=== PATIENT | female | born 1945 | race Caucasian/White ===

== ENCOUNTER 2024-11-14 05:48 | Emergency (ER) | payer MEDICARE, SELFPAY ==
--- NOTE | 2024-11-14 | ECG_ITS ---
Test Reason : HYPERTENSION Blood Pressure : */* mmHG Vent. Rate : 68 BPM Atrial Rate : 68 BPM P-R Int : 160 ms QRS Dur : 86 ms QT Int : 412 ms P-R-T Axes : 54 -21 9 degrees QTcB Int : 438 ms Sinus rhythm with Premature atrial complexes with Aberrant conduction Otherwise normal ECG No previous ECGs available Referred By: Generic ED Physician Electronically Signed By: HELADIO ALBERTO MD
[2024-11-14 05:59] VITALS: BP 172/76; PULSE 65; RESP 16; TEMP 36.3; O2SAT 97; BMI 28.2
[2024-11-14 06:48] LABS: MANUAL DIFF FLAG NO
[2024-11-14 06:49] LABS: Basophils Percent Auto 0.3 % (0-2); Eosinophils Absolute Auto 0.1 X10*3/uL (0.0-0.4); Eosinophils Percent Auto 1.1 % (0-4); Hematocrit 41.3 % (37.0-47.0); Hemoglobin 13.9 g/dl (12.0-16.0); Imm Gran Abs Auto 0.02 X10*3/uL (0.00-0.03); Imm Gran Pct Auto 0.3 % (0.0-0.4); Lymphocytes Absolute Auto 1.8 X10*3/uL (1.2-4.9); Lymphocytes Percent Auto 25.9 % (20-40); Mean Corpuscular HGB Conc 33.7 g/dl (31.0-35.0); Mean Corpuscular Volume 94.9 fL (80.0-98.0); Mean Platelet Volume 11.3 fL (9.4-12.3); Monocytes Absolute Auto 0.6 X10*3/uL (0.1-1.2); Monocytes Percent Auto 8.2 % (2-11); Neutrophils Absolute Auto 4.6 x10*3/uL (2.0-8.3); Neutrophils Percent Auto 64.2 % (45-73); Platelet Count 176 X10*3/uL (160-400); Red Blood Count 4.35 X10*6/uL (4.20-5.50); Red Cell Distribution Width 12.1 % (11.0-16.0); White Blood Count 7.1 X10*3/uL (4.8-10.8)
[2024-11-14 07:10] LABS: Alanine Aminotransferase 14 U/L (0-31); Albumin Level 3.9 g/dL (3.5-5.0); Alkaline Phosphatase 71 U/L (39-117); Anion Gap 11 (12-20); Aspartate Amino Transferase 20 U/L (5-31); Bilirubin Total 0.4 mg/dL (0.0-1.0); Blood Urea Nitrogen 16 mg/dL (9-16); Calcium 8.9 mg/dL (8.4-10.2); Carbon Dioxide 25 mmol/L (22-29); Chloride 108 mmol/L (96-108); Creatinine Clr Calc Pharmacy 65.3; Estimated Glomerular Filt Rate > 60; Glucose Random 100 mg/dL (60-115); Potassium 4.2 mmol/L (3.3-5.1); Sodium 140 mmol/L (135-145)
[2024-11-14 07:16] LABS: Troponin-I High Sensitivity 4.5 ng/L (<3.5-17.0)
[2024-11-14 07:20] LABS: Appearance Urine Clear; Color Urine Yellow; Glucose Urine UA Negative (Negative); Leukocyte Esterase Urine Trace (Negative); Nitrite Urine Negative (Negative); PH 7.5 (5.0-9.0); Specific Gravity - Urine 1.015 (1.005-1.025); UMIC TRIGGER UACC YES; Urine Blood Negative (Negative); Urine Ketones Negative (Negative); Urine Protein Negative (Neg-Trace)
[2024-11-14 07:22] LABS: Bacteria Urine None Seen (None Seen); Hyaline Casts Urine 0-2 /LPF (0-2); RBC Urine 0-2 /HPF (0-2); Squamous Epithelial Cell Urine 0-2 /HPF (0-2); WBC Urine 0-5 /HPF (0-5)
[2024-11-14 07:48] VITALS: BP 186/74; PULSE 66; RESP 16; TEMP 36.4; O2SAT 93
--- NOTE | 2024-11-14 07:49 | ED.GENADULT ---
HPI - General Adult General Chief complaint: General Medical Stated complaint: HBP- tiredness Time Seen by Provider: 11/14/24 08:42 Source: patient and medical or surgical instrument maker Mode of arrival: ambulatory Limitations: language barrier History of Present Illness ED Provider: Angela Neil PA-C [facility] narrative: This is a 79-year-old female, who presents emergency department with concerns for vaginal itching worsening over the last month. Patient states that she is unable to sleep as she is constantly waking up in the middle of the night with itching. She states that she has a history of this several years ago most prescribed a cream which helped her significantly. She is unsure of the name. She denies any headaches, dizziness, blurred vision, chest pain, shortness for breath, abdominal pain, nausea, vomiting or diarrhea. She denies any dysuria, hematuria, urinary frequency or urgency. She has tried heat and ice packs as well as showering in the middle of the night to help with her symptoms however this is not provided her with any relief. No other complaints or concerns at this time. MD complaint: Vaginal itching Onset (ago): month(s) Radiation: non-radiation Pain Consistency: constant Relieving factors: none Associated symptoms: denies other symptoms Treatments prior to arrival: none Related Data Previous Rx's ?Medication ?Instructions ?Recorded clotrimazole 1 % topical cream 1 appl topical BID 7 days #15 grams 11/14/24 Allergies Allergy/AdvReac Type Severity Reaction Status Date / Time No Known Allergies Allergy Verified 11/14/24 06:03 Review of Systems Review of Systems: Yes all other systems are reviewed and are negative Constitutional: Constitutional: Reports as per [facility] Social History Social History Advance Directives: No Advance Directives Information Provided: Yes Do you have a plan to hurt others: No Plan Physical Exam ED Vital Signs: Vital Signs - 24 hr 11/14/24 05:59 11/14/24 07:48 Temperature 97.3 F 97.5 F Pulse Rate 65 66 Respiratory Rate 16 16 Blood Pressure 172/76 H 186/74 H Pulse Oximetry 97 93 Oxygen Delivery Method Room Air Room Air BMI result Body Mass Index 28.2 Const General: cooperative, comfortable and no acute distress Orientation/consciousness: patient oriented x3 Limitations: no limitations HENMT Head: Yes normal to inspection, Yes normocephalic and Yes atraumatic Ears: hearing grossly normal bilaterally General nose exam: Normal external nose present Face and sinus: Yes normal facial exam Mouth: Normal oral and palatal mucosa present, oropharynx normal and moist mucous membranes Throat: Yes posterior oropharynx normal Eyes General: appearance normal, both eyes and all related structures Eyelids: Yes eyelids normal Conjunctivae: conjunctivae normal Sclerae: sclerae normal Pupils: Equal, round and reactive pupils present EOM: EOMs intact bilaterally Neck Neck: Yes normal visual inspection, Yes full ROM and Yes no lymphadenopathy Lymphatic: no lymphadenopathy noted Chest Chest palpation & inspection: normal inspection of the chest Resp Effort & Inspection: normal respiratory effort and able to speak in complete sentences Auscultation: clear to auscultation bilaterally, no crackles, no rales, no rhonchi and no wheezes Cardio Rate: regular rate Rhythm: regular rhythm Heart sounds: S1 normal heart sound present and S2 normal heart sound present GI Inspection: Yes normal to inspection Other: examination performed with RN present at all times, Porsche Ely RN. In the groin folds, as well as the labia majora, there is slight erythema and edema noted, no obvious discharge noted. No drainage, does not extend into the perineum region. Skin General skin exam: no rashes or lesions noted Trauma: no lacerations or abrasions Wounds: no wounds Neuro General: patient oriented x3 and moves all extremities Cranial nerves: Yes Equal, round and reactive pupils present Extrem General: Yes normal to inspection Right upper extremity: normal to inspection Left upper extremity: normal to inspection Right lower extremity: normal to inspection Left lower extremity: normal to inspection Course Course Course Narrative: 79 yo female with no PMH here with c/o not sleeping well, fatigued and having vaginal itching that keeps her up at night. They state she is not on any medications. She is very tired. Her blood pressure is elevated which is abnormal for her. No CP/SOB reported. Labs and patient wants female provider this is a RAPID medical screening exam the rest of the history and physical exam is to be done by the main provider. TRACY 11/14/24 755am Medical Decision Making Medical Decision Making MDM Narrative: This is a 79-year-old female who presents emergency department with concerns for vaginal itching for the last month which is keeping her up at night. On arrival, blood pressure elevated at 172/76, she was not evaluated until approximately 9:00 a.m. due to prolonged wait times in the emergency room. Blood pressure 186/74. She reports that she did not take her blood pressure medication prior to her arrival today. She has no chest pain or shortness of breath. No dizziness or blurred vision. Patient reports that she was previously prescribed a cream which helped her tremendously. I called over to her pharmacy, they have no record. Will try topical clotrimazole. Advised follow-up with PCP. She understands and agrees with plan. Given strict return precautions. Labs were obtained prior to my evaluation, she has no leukocytosis, stable H&H, she has no chest pain or shortness for breath. EKG was performed, no STEMI, trace leuk esterases seen on urinalysis. No other complaints or concerns at this time. Differential Diagnosis Differential Diagnoses: The differential diagnosis associated with the presentation includes Atrophic vaginitis, vulva candidiasis, contact dermatitis, UTI Lab Data [facility] Lab Attestation statement: I reviewed the patient's lab results. See MDM and course 11/14/24 06:42 11/14/24 06:42 Labs: Lab Results 11/14/24 Range/Units 06:42 WBC 7.1 (4.8-10.8) X10*3/uL RBC 4.35 (4.20-5.50) X10*6/uL Hgb 13.9 (12.0-16.0) g/dl Hct 41.3 (37.0-47.0) % MCV 94.9 (80.0-98.0) fL MCH 32.0 (27.0-33.0) pg MCHC 33.7 (31.0-35.0) g/dl RDW 12.1 (11.0-16.0) % Plt Count 176 (160-400) X10*3/uL MPV 11.3 (9.4-12.3) fL Immature Gran % (Auto) 0.3 (0.0-0.4) % Neut % (Auto) 64.2 (45-73) % Lymph % (Auto) 25.9 (20-40) % [place] % (Auto) 8.2 (2-11) % Eos % (Auto) 1.1 (0-4) % Baso % (Auto) 0.3 (0-2) % Lymph # (Auto) 1.8 (1.2-4.9) X10*3/uL [place] # (Auto) 0.6 (0.1-1.2) X10*3/uL Eos # (Auto) 0.1 (0.0-0.4) X10*3/uL Baso # (Auto) 0.0 (0.0-0.2) X10*3/uL Abs Immat Gran (auto) 0.02 (0.00-0.03) X10*3/uL Absolute Neuts (auto) 4.6 (2.0-8.3) x10*3/uL Absolute Nucleated RBC 0.000 (0.0-0.012) X10*3/uL Nucleated RBC % (auto) 0.0 (0.0-0.2) /100WBC Sodium 140 (135-145) mmol/L Potassium 4.2 (3.3-5.1) mmol/L Chloride 108 (96-108) mmol/L Carbon Dioxide 25 (22-29) mmol/L Anion Gap 11 L (12-20) BUN 16 (9-16) mg/dL Creatinine 0.65 (0.5-1.4) mg/dL Estim Creat Clear Calc 65.3 Estimated GFR > 60 Random Glucose 100 (60-115) mg/dL Calcium 8.9 (8.4-10.2) mg/dL Total Bilirubin 0.4 (0.0-1.0) mg/dL AST 20 (5-31) U/L ALT 14 (0-31) U/L Alkaline Phosphatase 71 (39-117) U/L Troponin I High Sens 4.5 (<3.5-17.0) ng/L Total Protein 7.0 (6.5-8.0) g/dL Albumin 3.9 (3.5-5.0) g/dL Urine Color Yellow Urine Appearance Clear Urine pH 7.5 (5.0-9.0) Ur Specific [place] 1.015 (1.005-1.025) Urine Protein Negative (Neg-Trace) mg/dL Urine Glucose (UA) Negative (Negative) mg/dL Urine Ketones Negative (Negative) mg/dL Urine Blood Negative (Negative) Urine Nitrite Negative (Negative) Ur Leukocyte Esterase Trace H (Negative) Urine RBC 0-2 (0-2) /HPF Urine WBC 0-5 (0-5) /HPF Ur Squamous Epith Cells 0-2 (0-2) /HPF Urine Bacteria None Seen (None Seen) Hyaline Casts 0-2 (0-2) /LPF Independent Interpretation I performed an independent interpretation of an: EKG Interpretation: Rate: 68 Rhythm: NSR with PACs [place]: left Normal P waves. Normal SOFIA. Normal QRS complex. ST T wave : normal no LUCITA qTC: 438 prior studies: no acute ischemia The study has been interpreted contemporaneously by me. . Discharge Plan Discharge Clinical Impression: Vagina itching Patient Disposition: Home, Self-Care Instructions: Yeast Infection (ED), Skin Yeast Infection (ED) Additional Instructions: You were seen in the emergency department today. You have concerns for a rash in your pelvic region which can be attributed to a fungal like infection. Please apply clotrimazole cream twice a day for the next 7 days. Keep area clean and dry. Please follow-up with your primary care physician to ensure that your symptoms are improving. If any new or worsening symptoms occur including but not limited to increased redness, fevers, chills, chest pain, shortness of breath, abdominal pain, please seek emergent care. Prescriptions: New clotrimazole 1 % cream 1 appl topical BID 7 Days Qty: 15 0RF Print Language: Malian
--- NOTE | 2024-11-14 09:40 | PC.NURSE ---
internal exam performed by provider, pt to discharge home with medications
[2024-11-14 09:41] VITALS: BP 171/72; PULSE 68; RESP 16; TEMP 36.7; O2SAT 96
--- OUTSIDE RECORDS SUMMARY | 2024-11-14 09:43 | XMS_ITS | Clinical Summary ---
Author Organization [address] [facility] Address [address] [place] [address] Phone Care Team Providers Care Human Capital Manager Name Role Phone Olena Garland MD Primary Care Prov ider Allergies No known active allergies Medications alendronate (FOSAMAX) 70 mg tablet Take 1 Tablet by mouth every 7 days. 3 Active amLODIPine (NORVASC) 10 mg tablet Take 1 Tablet by mouth daily. 3 Active polyvinyl alcohol (ARTIFICIAL TEARS) 1.4 % ophthalmic solution PLACE 1 DROP IN BOTH EYES NEEDED 2 Active calcium carbonate 1,500 mg (600 mg elemental calcium) tablet TAKE 1 TABLET BY MOUTH EVERY 12 HOURS 4 Active citalopram (CeleXA) 10 mg tablet TAKE 1 TABLET BY MOUTH EVERY MORNING 4 Active dorzolamide-ti moloL (COSOPT) 22.3-6.8 mg/mL ophthalmic solution INSTILL 1 DROP IN BOTH EYES TWICE DAILY 2 Active latanoprost (XALATAN) 0.005 % ophthalmic solution INSTILL 1 DROP IN BOTH EYES AT BEDTIME 1 Active valsartan (DIOVAN) 80 mg tablet Take 1 Tablet by mouth every evening. 3 Active atenoloL (TENORMIN) 50 mg tablet TAKE 1 TABLET BY MOUTH DAILY 90 tablet 5 Active omeprazole (PriLOSEC) [address] capsule TAKE 1 CAPSULE BY MOUTH TWICE DAILY FOR 14 DAYS 28 capsule 5 Active cholecalcifero l (VITAMIN D-3) 50 mcg (2,000 unit) tablet TAKE 1 TABLET BY MOUTH DAILY 90 tablet 1 5 Active cholecalcifero l (VITAMIN D-3) 50 mcg (2,000 unit) tablet Take 1 Tablet by mouth daily. 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 Overview (04/09/2024): [facility] 09/17/12 Cholelithiasis 09/04/2012 Breast lump in female 05/15/2012 Displacement of lumbar inter vertebral disc without myelopathy 09/29/2009 Thoracic and lumbosacral neuritis 09/29/2009 Overview (04/09/2024): Thoracic or lumbosacral neuritis or radiculitis, unspecified : IMO update Essential hypertension, benign 01/24/2006 Immunizations Name Administration Dates Next Due Influenza Quadravalent, 0.5m l (Fluzone High-dose) 65yo and older 04/05/2024 Influenza Quadravalent, MDCK , 0.5ml, with preservative (Flucelvax) 6mo and older 03/27/2020 Influenza trivalent, 0.5mL ( Fluad) 65yo and older 04/06/2023,03/17/2022,03/19/2021,04/10,03/04/2017 Influenza trivalent, 0.5mL, preservative free (Fluarix; FluLaval; Fluzone) ages 6mo and older (Afluria) 3 years and older 04/17/2013,06/30/2012 CarFin SARS-CoV-2 COVID-19, mRNA, LNP-S, preservative free 06/04/2021 Pneumococcal conjugate 13 va lent (Prevnar 13, PCV13) 2mo and older 10/25/2017 Pneumococcal polysaccharide 23 valent (Pneumovax 23) 2yo and older 11/26/2011 Td Tetanus diptheria (Tdvax) 7yo and older 08/21/2018 Tdap Tetanus diptheria acell ular pertussis (Boostrix; Adacel) 7yo and older 05/28/2008 Surgical History Surgery Date Site/Laterality Comments VARICOSE VEIN SURGERY 2002 PROCEDURE: UT LIGJ DIVJ &/EXCJ VARICOSE VEIN CLUSTER 1 LEG APPENDECTOMY 26 yrs PROCEDURE: HISTORICAL APPENDECTOMY COLONOSCOPY 09/12/08 PROCEDURE: HISTORICAL COLONOSCOPY; COMMENT: hemorrhoids; repeat in ten years OTHER SURGICAL HISTORY 09/24/2010 PROCEDURE: HISTORY OTHER; COMMENT: 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 Chang Bob OTHER SURGICAL HISTORY 09/24/2010 PROCEDURE: HISTORICAL SUBTOTAL THYROIDECTOMY; COMMENT: removal of left lobe of thyroid for goiter OTHER SURGICAL HISTORY 09/04/14 PROCEDURE: UT ERCP REMOVE CALCULI/DEBRIS BILIARY/PANCREAS DUCT; COMMENT: biliary sphincterotomy, removal of CBD stones and sludge, no pancreaticogram UPPER GASTROINTESTINAL ENDOSCOPY 12/05/2019 PROCEDURE: UT UPPER GI ENDOSCOPY PERFORMED; COMMENT: dr. mireles - flash removed BREAST BIOPSY 2010ish Right PROCEDURE: BX BREAST; PERC NEEDLE CORE W/IMAG GUID; COMMENT: b9 Medical History Medical History Date Comments Unspecified essential hypertension DX:Unspecified essential hypertension Enlarged thyroid 06/24/2008 DX:Enlarged thy roid; COMMENT: asymmetric goiter, needle biopsy benign, referred to ENT Dr. 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 Madrigal, Dr. Dang Anxiety 10/25/2017 DX:Anxiety Adjustment disorder with mix ed anxiety and depressed mood 10/25/2017 DX:Adjustment disorder with mixed anxiety and depressed mood Osteoporosis 03/10/2021 DX:Osteoporosis Family History Medical History Relation Name Comments Hypertension Father Coronary artery disease Neg Hx Relation Name Status Comments Brother Alive x1 Daughter Alive x1 Father Alive Mother Alive (82) glaucoma, HTN Sister Alive x4 Son Alive x2 Social History Tobacco Use Types Packs/Day Years Used Date Smoking Tobacco: Never Smokeless Tobacco: Never Tobacco Cessation:Counseling Given: Not Answered Alcohol Use Standard Drinks/Week Comments Yes 0 (1 standard drink = 0.6 oz pur e alcohol) Comments Unknown Sex and Gender Information Value Date Recorded Sex Assigned at Not on file Legal Sex Female 9:31 AM EST Gender Identity Not on file Sexual Orientation Not on file Obstetrics History Last Filed Vital Signs Vital Sign Reading Time Taken Comments Blood Pressure 115/80 06/12/2024 10:58 AM EST Pulse 78 06/12/2024 10:58 AM EST Temperature 36.6 ??C (97.8 ??F) 05/04/2024 10:[address] Respiratory Rate 16 05/04/2024 10:11 AM EST Oxygen Saturation 98% 06/12/2024 10:58 AM EST Inhaled Oxygen Concentration - - Weight 68 kg (150 lb) 06/12/2024 10:58 AM EST Height 160 cm (5' 3 ) 06/12/2024 10:58 AM EST Body Mass Index 26.57 06/12/2024 10:58 AM EST Plan of Treatment Upcoming Encounters Date Type Department Care Team (Late st Contact Info) Description 01/25/2025 1:15 PM EDT Office Visit Adult Medicine [address] [phone] Olena Garland MD [address] [place] [id number] Health Maintenance Due Date Last Done Comments Zoster Vaccines (1 of 2) 01/10/1996 RSV Immunization Adult Patients (1 - 1-dose 75+ series) 2021 Social Influencers of Health Screening 05/29/2022 COVID-19 Vaccine ( season) 2024 06/04/2021, 10/12/2020, 09/19/2020 Depression Screening 04/28/2024 04/28/2023 Falls Risk Assessment 04/28/2024 04/28/2023 Medicare Annual Wellness Visit 04/28/2024 04/28/2023 Hypertension/CHF/CAD Annual BMP Blood Test 04/06/2025 04/06/2024, 04/06/2024 DTaP,Tdap,and Td Vaccines (3 - Td or Tdap) 08/21/2028 08/21/2018, 05/28/2008 Cholesterol Screening (Lipid Panel) 04/06/2029 04/06/2024, 04/06/2024 Osteoporosis Screening (Bone Density Screening) 03/05/2031 03/05/2021, 11/25/2017 Hepatitis C Screening Completed 02/22/2014 Pneumococcal Vaccine: 50+ Years Completed 10/25/2017, 11/26/2011 Influenza Vaccine Completed 04/05/2024, , 03/17/2022, Additional history exists HIB Vaccines Aged Out No longer eligi ble based on patient's age to complete this topic HPV Vaccines Aged Out No longer eligi ble based on patient's age to complete this topic Hepatitis A Vaccines Aged Out No long er eligible based on patient's age to complete this topic Hepatitis B Vaccines Aged Out No long er eligible based on patient's age to complete this topic IPV Vaccines Aged Out No longer eligi ble based on patient's age to complete this topic MMR Vaccines Aged Out No longer eligi ble based on patient's age to complete this topic Meningococcal ACWY Vaccine Aged Out N o longer eligible based on patient's age to complete this topic Meningococcal B Vaccine Aged Out No l onger eligible based on patient's age to complete this topic RSV Immunization Patients Under 20 months Aged Out No longer eligible based on patient's age to complete this topic Varicella Vaccines Aged Out No longer eligible based on patient's age to complete this topic Procedures Procedure Name Priority Date/Time Associated Diagnosis Comments EXTERNAL VASCULAR ULTRASOUND 09/05/2024 ANNUAL BMP BLOOD TEST Routine 04/06/2024 LIPID PANEL Routine 04/06/2024 DEPRESSION SCREENING Routine 04/28/2023 FALLS RISK ASSESSMENT Routine 04/28/2023 DXA BONE DENSITY STUDY 1+ SITS AXIAL SKEL Routine 03/05/2021 10:12 AM EDT Other specified disorders of bone density and structure, unspecified site HEPATITIS C SCREENING Routine 02/22/2014 from Last 3 Months or Most Recently Relevant to Health Maintenance Results * External Vascular Ultrasound (09/05/2024) Anatomical Region Laterality Modality Ultrasound Provider Karen Onbase CV VASCULAR PROCEDURES F inal Result * Annual BMP Blood Test (04/06/2024) [facility] Annual BMP Blood Test Abstracted [facility] Provider HEALTH MAINTENANCE Final Result * (ABNORMAL) Lipid panel (04/06/2024) [facility] LDL/HDL Ratio 3 0 - 4 Triglycerides 93 0 - 150 mg/dL Cholesterol 193 0 - 200 mg/dL HDL 59 >=40 mg/dL LDL Cholesterol 116(A) 0 - 100 mg/dL Blood Venous blood specimen / Unknown Result [facility] Provider LAB BLOOD ORDERABLES Katia l Result * Falls Risk Assessment (04/28/2023) [facility] Falls Risk Assessment Abstracted [facility] Provider HEALTH MAINTENANCE Final Result * Depression Screening (04/28/2023) [facility] Depression Screening Abstracted [facility] Provider HEALTH MAINTENANCE Final Result * DXA BONE DENSITY STUDY 1+ SITS AXIAL SKEL (03/05/2021 10:12 AM EDT) Anatomical Region Laterality Modality Bone Densitometr y 02/17/2021 3:11 PM EDT Narrative 03/05/2021 4:39 PM EDT Clinical history: other osteoporosis Scans of the lumbar spine and hips were performed on a [employer] fan beam bone densitometer. ? Bone mineral density measurements and associated T and Z scores respectively are as follows: Lumbar Spine: L1-L4 BMD: 0.758 g/cm2 ? T-Score: -2.6 ? Z-Score: -0.2 Compared with the prior study dated 11/25/2017, the BMD reading has increased which is not statistically significant Left Proximal Femur: Neck BMD: 0.526 g/cm2 ? T-Score: -2.9 ?? Z-Score: -0.8 Total BMD: 0.789 g/cm2 ? T-Score: -1.3 ?Z-Score: 0.5 Compared with the prior study the mean BMD reading in the total left hip has increased which is not statistically significant Compared with standards for the young adult, lowest measured bone density places the patient in the W.H.O. osteoporotic range. IMPRESSION: IMPRESSION: Osteoporosis. The NOF guidelines recommend that FDA approved medical therapies be considered in postmenopausal women and men age >50 years with a: i. Hip or vertebral (clinical or morphometric) fracture ii. T score of < -2.5 at the spine or hip iii. 10 year fracture probability by FRAX of >3% for hip fracture, or >20% for major osteoporotic fracture PLEASE NOTE: ?? W.H.O. classification is based on lowest measured density at the spine, femoral neck, or total hip.This classification has prognostic significance when applied to post menopausal women and older men. 1) ??The World Health Organization defines low BMD as follows: ?T-score ? Normal ? at or > -1 Osteopenia ? < -1 and ??> - 2.5 Osteoporosis ? at or < -2.5 without fractures Established osteoporosis ? < -2.5 with fractures Procedure Note Patience De La Cruz MD - 06/08/2022 Clinical history: other osteoporosis Scans of the lumbar spine and hips were performed on a [employer] beam bone densitometer. Bone mineral density measurements and associated T and Z scoresrespectively are as follows: Lumbar Spine: L1-L4 BMD: 0.758 g/cm2 T-Score: -2.6 Z-Score: -0.2 Compared with the prior study dated 11/25/2017, the BMD reading hasincreased which is not statistically significant Left Proximal Femur: Neck BMD: 0.526 g/cm2 T-Score: -2.9 Z-Score: -0.8 Total BMD: 0.789 g/cm2 T-Score: -1.3 Z-Score: 0.5 Compared with the prior study the mean BMD reading in the total left hiphas increased which is not statistically significant Compared with standards for the young adult, lowest measured bone densityplaces the patient in the W.H.O. osteoporotic range. IMPRESSION: IMPRESSION: Osteoporosis. The NOF guidelines recommend that FDA approved medical therapies beconsidered in postmenopausal women and men age >50 years with a: i. Hip or vertebral (clinical or morphometric) fracture ii. T score of < -2.5 at the spine or hip iii. 10 year fracture probability by FRAX of >3% for hip fracture, or >20%for major osteoporotic fracture PLEASE NOTE: W.H.O. classification is based on lowest measured density at the spine,femoral neck, or total hip.This classification has prognostic significance when applied to postmenopausal women and older men. 1) The World Health Organization defines low BMD as follows: T-score Normal at or > -1 Osteopenia < -1 and > -2.5 Osteoporosis at or < -2.5 withoutfractures Established osteoporosis < -2.5 with fractures us Bernie PEREZ IMG DXA PROCEDURES Final Result * Hepatitis C Screening (02/22/2014) Hepatitis C Screening Abstracted us Historical Provider HEALTH MAINTENANCE Final Result from Last 3 Months or Most Recently Relevant to Health Maintenance Insurance [employer] MEDICARE Care Teams Human Capital Manager Relationship Specialty Start Date End Date Olena Garland MD [address] [place] [id number] PCP - General Internal Medicine 04/17/24
== END 2024-11-14 09:42 | disposition home or self-care (01) ==
PROVIDERS: Emergency Provider Emergency Medicine; PCP Internal Medicine
DX: L29.2 Pruritus vulvae (principal); I10 Essential (primary) hypertension
CPT/HCPCS: 36415; 80053; 81001; 84484; 85025; 93005; 99283

== ENCOUNTER → 2024-11-14 06:30 | Outpatient (BNV) | payer MEDICARE, SELFPAY | PROVIDERS: Emergency Provider Emergency Medicine; PCP Internal Medicine; Visit Provider Internal Medicine Cardiovascular Disease | DX: I49.1 Atrial premature depolarization (principal) | CPT/HCPCS: 93010 ==